=== PATIENT | female | born 1980 | race Caucasian/White ===

== ENCOUNTER 2016-11-28 09:24 | Day surgery (SDC) | payer MEDICAID ==
[~2016-11-28] VITALS: Ht 149.9 cm; Wt 46.2 kg
[2016-11-28] VITALS (12 sets, daily range): BP systolic 90–103; BP diastolic 49–61; PULSE 56–80; RESP 9–18; Ht 149.9 cm; Wt 46.2 kg
[~2016-11-28 09:24] MED LIST: CEFAZOLIN 1 GM INJ ONE; LACTATED RINGER'S 1,000 ML IV SCH
[2016-11-28 10:18] LABS: ADD SCAN DIFF NO
[2016-11-28 10:24] LABS: BASOPHILS % 0.2 % (0.0-2.0); EOSINOPHILS # 0.1 10^3/ul (0.0-0.5); EOSINOPHILS % 1.4 % (0.0-7.0); HEMOGLOBIN 12.8 g/dl (12.0-16.0); LYMPHOCYTES # 1.4 10^3/ul (0.8-2.9); LYMPHOCYTES % 33.3 % (15.0-51.0); MEAN CORPUSCULAR HEMOGLOBIN 27.8 pg (29.0-33.0); MEAN CORPUSCULAR HGB CONC 32.8 g/dl (32.0-37.0); MEAN CORPUSCULAR VOLUME 84.8 fl (82.0-101.0); MONOCYTE # 0.4 10^3/ul (0.3-0.9); MONOCYTES % 8.5 % (0.0-11.0); NEUTROPHIL # 2.3 10^3/ul (1.6-7.5); NEUTROPHILS % 56.4 % (39.0-77.0); PLATELET COUNT 165 10^3/UL (140-415); RED CELL DISTRIBUTION WIDTH 14.5 % (11.5-14.5); WHITE BLOOD COUNT 4.1 10^3/ul (4.8-10.8)
[2016-11-28] MEDS ORDERED: PROPOFOL 20 ML ONE (10:49)
[2016-11-28] MEDS ORDERED: ROCURONIUM 50 MG INJ ONE (10:49)
[2016-11-28] MEDS ORDERED: FENTAnyl 50 MCG/ML VIAL ONE (10:50)
[2016-11-28] MEDS ORDERED: ROPIVACAINE 0.2% 20 ML VIAL ONE (10:50)
[2016-11-28] MEDS ORDERED: MIDAZOLAM 1 MG/ML 2 ML INJ ONE (10:50)
[2016-11-28] MEDS ORDERED: MEPERIDINE 25 MG INJ IV PRN (11:00)
[2016-11-28] MEDS ORDERED: DIPHENHYDRAMINE 50 MG INJ IV PRN (11:00)
[2016-11-28] MEDS ORDERED: EPHEDrine SULFATE 50 MG/5 ML SYG IV PRN (11:00)
[2016-11-28] MEDS ORDERED: ONDANSETRON 4 MG INJ IV PRN ×2 (11:00→12:30)
[2016-11-28] MEDS ORDERED: HYDROmorphONE (0.2 MG/ML) 10ML SYG IV PRN ×3 (11:00)
[2016-11-28] MEDS ORDERED: morphine (1 MG/ML) 10ML SYRINGE IV PRN ×3 (11:00)
[2016-11-28] MEDS ORDERED: BUPIVACAINE 0.5%/EPI (SDV) 30 ML INJ ONE (11:16)
[2016-11-28] MEDS ORDERED: DEXAMETHASONE 4 MG/ML 1 ML INJ ONE (11:42)
[2016-11-28] MEDS ORDERED: METOCLOPRAMIDE 10 MG INJ ONE (11:42)
[2016-11-28] MEDS ORDERED: KETOROLAC 30 MG INJ ONE (11:42)
[2016-11-28] MEDS ORDERED: ONDANSETRON 4 MG INJ ONE (11:42)
[2016-11-28] MEDS ORDERED: BUPIVACAINE 0.5%/EPI (SDV) 30 ML INJ INJ ONE (11:55)
--- NOTE | 2016-11-28 12:06 | PREOPHP ---
DATE OF ADMISSION: 11/28/2016 HISTORY OF PRESENT ILLNESS: A 36-year-old female 3, para 3, status post spontaneous vaginal delivery on 08/29/2016 requests surgical sterilization by bilateral tubal ligation. Current contra ceptive method: Condoms. PAST MEDICAL HISTORY: Unremarkable. PAST SURGICAL HISTORY: Unremarkable. ALLERGIES: PENICILLIN. FAMILY HISTORY: Noncontributory. PHYSICAL EXAMINATION: VITAL SIGNS: The patient is afebrile. Vital signs stable. HEAD, NECK, AND CHEST: Within normal limits. ABDOMEN: Soft, nontender, and nondistended. PELVIC: Normal. EXTREMITIES: Within normal limits. NEUROLOGIC: Within normal limits. IMPRESSION: Voluntary sterilization. PLAN: Minilaparotomy, bilateral tubal ligation. Risks, benefits, and alternatives of the procedure were explained to the patient. The patient has been counseled about all of her contraceptive optio ns including all methods of sterilization. It was explained to the patient that with bilateral tuba l ligation there is a chance of failure resulting in ectopic and/or intrauterine . After counseling, the patient said she understood and gave informed consent for the procedure. Dictated By: MAHESH FRYE/NICHOLE Conf#: [id number] DID#: [id number]
[2016-11-28] MEDS ORDERED: GLYCOPYRROLATE 0.4 MG INJ ONE (12:12)
[2016-11-28] MEDS ORDERED: NEOSTIGMINE 3 MG/3 ML SYRINGE ONE (12:12)
[2016-11-28] MEDS ORDERED: KETOROLAC 30 MG INJ IV PRN (12:30)
[2016-11-28] MEDS ORDERED: OXYCODONE/ACETAMINOPHEN (5/325) TAB PO PRN (12:30)
[2016-11-28] MEDS ORDERED: morphine 2 MG INJ IV PRN (12:30)
--- NOTE | 2016-11-28 14:06 | OPR ---
DATE OF OPERATION: 11/28/2016 PREOPERATIVE DIAGNOSIS: Voluntary sterilization. POSTOPERATIVE DIAGNOSIS: Voluntary sterilization. OPERATION PERFORMED: Minilaparotomy, bilateral tubal ligation. SURGEON: Mahesh Escalante MD EDGER FEEDER: technology infusion specialist ANESTHESIA: General. ANESTHESIOLOGIST: Dr. Harris DESCRIPTION OF PROCEDURE: The patient was taken to the operating room and placed on the operating t able in supine position. After adequate general anesthesia was given, the area was prepared and yenni ped in the usual sterile fashion. Using a scalpel, Pfannenstiel incision was made about 2 fingerbreadths above the symphysis pubis. T he incision was carried down to the fascia. The fascia was incised and extended bilaterally with Gerard vie. Two Shiv's were used to separate the fascia from the muscle. The muscle was dissected down to peritoneum. The peritoneum was secured with Kellys and incised with Metzenbaum scissors. Upon e ntering the peritoneal cavity, the right fallopian tube was grasped with a Albertina clamp and followe d to its fimbrial end to confirm its identity. Using 0 plain suture ligature, a 5 cm segment of the right fallopian tube was doubly ligated. Using Metzenbaum scissors, a portion of the right fallopi an tube ligated area was excised and sent to pathology. Same procedure was repeated on the left fal lopian tube. After assuring hemostasis, the peritoneum was closed with 0 chromic. The fascia was c losed with 0 Vicryl continuous. Subcutaneous tissue was reapproximated with 0 chromic. The skin wa s closed with leodan. ESTIMATED BLOOD LOSS: Minimal. COMPLICATIONS: None. COUNTS: All counts were correct. Dictated By: MAHESH FRYE/NICHOLE Conf#: [id number] DID#: [id number]
== END 2016-11-28 14:25 | disposition home or self-care (01) ==
LOC: SDS 09:24
PROVIDERS: ATTEND Obstetrics & Gynecology
DX: Z30.2 Encounter for sterilization (principal)
CPT/HCPCS: 58600; 85025; 86850; 86900; 86901; 88302; J0690; J1100; J1885; J2175; J2250; J2405; J2710; J2765; J2795; J3010; Z7512; Z7610